=== PATIENT | male | born 1995 | race Caucasian/White ===

== ENCOUNTER 2022-12-30 09:00 | Inpatient (IN) | payer OTHER, SELFPAY ==
[2022-12-30] VITALS (9 sets, daily range): BP systolic 120–141; BP diastolic 70–100; PULSE 98–128; RESP 13–26; TEMP 36.6–37.4; O2SAT 96–98; BMI 23.0; BMI 20.8
--- NOTE | ~2022-12-30 | CT_ITS ---
EXAMINATION: CT HEAD WITHOUT CONTRAST CLINICAL INFORMATION: Altered mental status COMPARISON: None available. TECHNIQUE: Contiguous axial imaging was performed from the skull base to vertex without intravenous administration of contrast. Coronal and sagittal reformatted images were obtained. This CT examination was performed using dose optimization techniques as appropriate, variously including the following: *Automated exposure control *Adjustment of mA and/or kV according to patient size (this includes techniques or standardized protocols for targeted exams where dose is matched to indication/reason for exam; i.e. extremities or head) *Use of iterative reconstruction technique DLP: 679 mGy-cm FINDINGS: The cortical sulci are normal. The lateral ventricles are symmetrical. The third and fourth ventricles are in their normal midline position. The basilar and prepontine cisterns are unremarkable. There is no acute intra or extracerebral abnormality. There is no mass effect or midline shift. Sections through the bony calvarium are unremarkable. The paranasal sinuses show moderate mucosal thickening in the left sphenoid sinus. The bony orbits and orbital contents are unremarkable. CT/CT head/brain wo IV con IMPRESSION: No acute intracranial pathology.
--- NOTE | 2022-12-30 09:08 | ED.GENADULT ---
HPI - General Adult General Chief complaint: ETOH/Substance Use Stated complaint: Heroin withdrawal, pain all over, AMS per EMS Time Seen by Provider: 12/30/22 13:35 Source: EMS Mode of arrival: EMS Limitations: altered mental status and other (patient w/ AMS ) History of Present Illness HPI narrative: Patient is a 27 year old male history hepatitis-C, IV drug use who presents by EMS for altered mental status for suspected heroin withdrawal. Patient is alert but not oriented and is not able to give an adequate history. EMS states patient has been off methadone for two days and may have had a couple beers early this morning as per the roommate at the scene. Patient unable to provide ROS or HPI. Related Data Allergies Allergy/AdvReac Type Severity Reaction Status Date / Time No Known Allergies Allergy Unverified 01/30/20 19:30 [No Known Allergies*] Review of Systems Review of Systems: Yes Unobtainable due to mental status PMFSH Past Medical History Attestation statement: The following information was validated with the patient. Source: old records reviewed and nursing notes reviewed Social History Social History Alcohol intake: current Use of substances other than those prescribed or required for medical reasons: Yes Substance Use Type: Heroin Advance Directives: No Physical Exam ED Vital Signs: Vital Signs - 24 hr 12/30/22 09:02 12/30/22 10:19 12/30/22 12:02 Temperature 98.2 F Pulse Rate 108 H 118 H 110 H Respiratory Rate 18 19 26 H Blood Pressure 141/99 H 122/78 134/90 H Pulse Oximetry 97 97 97 Oxygen Delivery Method Room Air Room Air 12/30/22 14:28 12/30/22 16:37 Temperature 98.2 F Pulse Rate 115 H 124 H Respiratory Rate 20 22 H Blood Pressure 122/86 122/84 Pulse Oximetry 98 Oxygen Delivery Method Room Air BMI result Body Mass Index 23.0 vss Appearance: Awake, disoriented, not alert to person, place, time or situation. Patient with involuntary movements, hallucinating. Head: Normocephalic, atraumatic, no step-offs or deformities Eyes: Pupils equal, round and reactive to light.? Neck: Normal inspection.? Neck supple.? CVS: Normal heart rate and rhythm.? Pulses normal.? Respiratory: No respiratory distress.? Breath sounds normal.? Abdomen: Soft and nontender.? Skin: Skin warm and dry.? Normal skin color.? Normal skin turgor.? Extremities: No lower extremity edema.? No calf ttp. 5/5 strength to bilateral upper and lower extremities Neuro: Awake, disoriented, not alert to person, place, time or situation. Patient with involuntary movements, hallucinating. To obtain an accurate neuro exam as patient is not following commands Course Reevaluation(s) Reevaluation #1: CBC with no acute findings. Chemistry with no acute findings requiring intervention. Patient is noted to have negative salicylates negative acetaminophen. Ethanol level 320. I did have a long conversation with mom who states patient last drink a few hours ago, patient drinks 2-3 L of vodka a day. Does have a history of delirium tremens, alcohol withdrawal. She tells me this is the worst she has seen him. Also tells me that patient was seen at [facility] yesterday. However he decided to leave against medical advice. He was in at [place] due to a alcohol withdrawal seizure. She tells me he is completely altered. Patient was given Ativan, Haldol IM, he was agreeable to this, he was very anxious, mom at the bedside when he agreed to IM medications, we had a difficult time obtaining IV access this is why M was given. Not a behavioral restraint. Has not yet given us a urine. Time: 10:21 Reevaluation #2: Patient is still tachycardic, blood pressure slightly high, tachypneic. I am concerned for delirium tremens, patient is still altered. Time: 13:14 Reevaluation #3: Patient to be admitted to the hospital to hospitalist team. Prior to patient being admitted to the hospital, ICU did evaluate patient states likely no need for ICU bed. Time: 16:58 Medications Administered Discontinued Medications Generic Name Dose Route Start Last Admin Trade Name Freq PRN Reason Stop Dose Admin Haloperidol Lactate 5 mg 12/30/22 10:21 12/30/22 09:20 Haloperidol Lactate 5 Mg/Ml Vial IM 12/30/22 10:22 5 mg ONCE ONE Administration Sodium Chloride 1,000 mls @ 999 mls/hr 12/30/22 13:30 12/30/22 16:22 Ns IV 12/30/22 14:30 Infused .Q1H1M STONE Infusion Sodium Chloride 1,000 mls @ 999 mls/hr 12/30/22 13:30 12/30/22 16:22 Ns IV 12/30/22 14:30 Infused .Q1H1M STONE Infusion Lorazepam 2 mg 12/30/22 09:15 12/30/22 10:44 Lorazepam 2 Mg/Ml Vial IVPUSH 12/30/22 09:16 Not Given ONCE ONE Lorazepam 2 mg 12/30/22 10:22 12/30/22 09:20 Lorazepam 2 Mg/Ml Vial IM 12/30/22 10:23 2 mg STAT STA Administration Phenobarbital Sodium 410.8 mg 12/30/22 10:00 12/30/22 09:47 Phenobarbital Sodium 130 Mg/Ml Im Once IM 12/30/22 10:01 410.8 mg ONCE ONE Administration Protocol Phenobarbital Sodium 308.1 mg 12/30/22 13:00 12/30/22 14:16 Phenobarbital Sodium 130 Mg/Ml Vial Im Q3hx2 IM 12/30/22 16:01 308.1 mg Q3H STONE Administration Protocol Medical Decision Making Medical Decision Making [facility] Narrative: 27-year-old male presents with altered mental status, limited history. Unable to answer questions. No reported trauma. EMS states patient has history of IV drug abuse per room a and was probably drinking earlier this morning. Physical exam patient altered. Unable to answer questions. Tachycardic. Tremulous. Diaphoretic. Concerns for polysubstance abuse versus acute alcohol withdrawal versus delirium tremens as patient is altered. Unlikely traumatic injury of head, stroke, posterior stroke, encephalitis, meningitis. Will rule out electrolyte disturbances Plan at this time labs, imaging. Differential Diagnosis Differential Diagnoses: The differential diagnosis associated with the presentation includes Concerns for polysubstance abuse versus acute alcohol withdrawal versus delirium tremens as patient is altered. Unlikely traumatic injury of head, stroke, posterior stroke, encephalitis, meningitis. Will rule out electrolyte disturbances Admission/Observation Consideration of admission/observation: Escalation of care including admission/observation considered Possible ICU admission Consult Healthcare Provider Management of the patient was discussed with: Sleep Technician Lab Data [facility] Lab Attestation statement: I reviewed the patient's lab results. 12/30/22 09:31 12/30/22 09:31 Labs: Lab Results 08/18/23 08/18/23 08/18/23 Range/Units 09:31 09:31 09:31 WBC 7.1 (4.8-10.8) X10*3/uL RBC 5.42 (4.60-5.80) X10*6/uL Hgb 15.5 (14.0-18.0) g/dl Hct 43.5 (42.0-52.0) % MCV 80.3 (80.0-98.0) fL MCH 28.6 (27.0-33.0) pg MCHC 35.6 (31.0-36.0) g/dl RDW 12.8 (11.0-16.0) % Plt Count 275 (160-400) X10*3/uL MPV 8.8 L (9.4-12.4) fL Immature Gran % (Auto) 0.1 (0.0-0.4) % Neut % (Auto) 51.8 (45-73) % Lymph % (Auto) 44.0 H (20-40) % Barren % (Auto) 3.7 (2-11) % Eos % (Auto) 0.1 (0-4) % Baso % (Auto) 0.3 (0-2) % Lymph # (Auto) 3.1 (1.2-4.9) X10*3/uL Barren # (Auto) 0.3 (0.1-1.2) X10*3/uL Eos # (Auto) 0.0 (0.0-0.4) X10*3/uL Baso # (Auto) 0.0 (0.0-0.2) X10*3/uL Abs Immat Gran (auto) 0.01 (0.00-0.03) X10*3/uL Absolute Neuts (auto) 3.7 (2.0-8.3) x10*3/uL Absolute Nucleated RBC 0.000 (0.0-0.012) X10*3/uL Nucleated RBC % (auto) 0.0 (0.0-0.2) /100WBC Sodium 144 (135-145) mmol/L Potassium 3.7 (3.3-5.1) mmol/L Chloride 110 H (96-108) mmol/L Carbon Dioxide 20 L (22-29) mmol/L Anion Gap 18 (12-20) BUN 7 L (9-16) mg/dL Creatinine 0.74 (0.5-1.4) mg/dL Estim Creat Clear Calc 145.0 Estimated GFR > 60 Random Glucose 117 H (60-115) mg/dL Calcium 9.4 (8.4-10.2) mg/dL Magnesium 2.3 (1.6-2.6) mg/dL Total Bilirubin 0.4 (0.0-1.0) mg/dL AST 38 H (5-37) U/L ALT 28 (0-40) U/L Alkaline Phosphatase 79 (39-117) U/L Total Creatine Kinase 100 (38-174) U/L Total Protein 8.6 H (6.5-8.0) g/dL Albumin 4.7 (3.5-5.0) g/dL Urine Color Urine Appearance Urine pH (5.0-9.0) Ur Specific [place] (1.005-1.025) Urine Protein (Neg-Trace) mg/dL Urine Glucose (UA) (Negative) mg/dL Urine Ketones (Negative) mg/dL Urine Blood (Negative) Urine Nitrite (Negative) Ur Leukocyte Esterase (Negative) Salicylates < 5.0 L (15-30) mg/dL Urine Opiates Screen (Not Detect) Urine Fentanyl Screen (Not Detect) Acetaminophen < 17 (<30) mcg/mL Ur Barbiturates Screen (Not Detect) Ur Phencyclidine Scrn (Not Detect) Ur Amphetamines Screen (Not Detect) U Benzodiazepines Scrn (Not Detect) Urine Cocaine Screen (Not Detect) U Marijuana (THC) Screen (Not Detect) Ethyl Alcohol 320 H* mg/dL COVID-19 (ENRIQUE) (Negative) COVID-19 Clin Com 12/30/22 12/30/22 12/30/22 Range/Units 09:33 15:37 15:37 WBC 6.0 (4.8-10.8) X10*3/uL RBC 5.08 (4.60-5.80) X10*6/uL Hgb 14.4 (14.0-18.0) g/dl Hct 42.2 (42.0-52.0) % MCV 83.1 (80.0-98.0) fL MCH 28.3 (27.0-33.0) pg MCHC 34.1 (31.0-36.0) g/dl RDW 12.7 (11.0-16.0) % Plt Count 222 (160-400) X10*3/uL MPV 8.9 L (9.4-12.4) fL Immature Gran % (Auto) 0.3 (0.0-0.4) % Neut % (Auto) 66.7 (45-73) % Lymph % (Auto) 27.0 (20-40) % Barren % (Auto) 5.7 (2-11) % Eos % (Auto) 0.0 (0-4) % Baso % (Auto) 0.3 (0-2) % Lymph # (Auto) 1.6 (1.2-4.9) X10*3/uL Barren # (Auto) 0.3 (0.1-1.2) X10*3/uL Eos # (Auto) 0.0 (0.0-0.4) X10*3/uL Baso # (Auto) 0.0 (0.0-0.2) X10*3/uL Abs Immat Gran (auto) 0.02 (0.00-0.03) X10*3/uL Absolute Neuts (auto) 4.0 (2.0-8.3) x10*3/uL Absolute Nucleated RBC 0.000 (0.0-0.012) X10*3/uL Nucleated RBC % (auto) 0.0 (0.0-0.2) /100WBC Sodium 145 (135-145) mmol/L Potassium 3.3 (3.3-5.1) mmol/L Chloride 111 H (96-108) mmol/L Carbon Dioxide 22 (22-29) mmol/L Anion Gap 15 (12-20) BUN 7 L (9-16) mg/dL Creatinine 0.73 (0.5-1.4) mg/dL Estim Creat Clear Calc 147.0 Estimated GFR > 60 Random Glucose 145 H (60-115) mg/dL Calcium 9.0 (8.4-10.2) mg/dL Magnesium (1.6-2.6) mg/dL Total Bilirubin 0.3 (0.0-1.0) mg/dL AST 41 H (5-37) U/L ALT 26 (0-40) U/L Alkaline Phosphatase 68 (39-117) U/L Total Creatine Kinase (38-174) U/L Total Protein 7.5 (6.5-8.0) g/dL Albumin 4.1 (3.5-5.0) g/dL Urine Color Urine Appearance Urine pH (5.0-9.0) Ur Specific [place] (1.005-1.025) Urine Protein (Neg-Trace) mg/dL Urine Glucose (UA) (Negative) mg/dL Urine Ketones (Negative) mg/dL Urine Blood (Negative) Urine Nitrite (Negative) Ur Leukocyte Esterase (Negative) Salicylates (15-30) mg/dL Urine Opiates Screen (Not Detect) Urine Fentanyl Screen (Not Detect) Acetaminophen (<30) mcg/mL Ur Barbiturates Screen (Not Detect) Ur Phencyclidine Scrn (Not Detect) Ur Amphetamines Screen (Not Detect) U Benzodiazepines Scrn (Not Detect) Urine Cocaine Screen (Not Detect) U Marijuana (THC) Screen (Not Detect) Ethyl Alcohol mg/dL COVID-19 (ENRIQUE) Negative (Negative) COVID-19 Clin Com See Note 12/30/22 12/30/22 Range/Units 16:09 16:09 WBC (4.8-10.8) X10*3/uL RBC (4.60-5.80) X10*6/uL Hgb (14.0-18.0) g/dl Hct (42.0-52.0) % MCV (80.0-98.0) fL MCH (27.0-33.0) pg MCHC (31.0-36.0) g/dl RDW (11.0-16.0) % Plt Count (160-400) X10*3/uL MPV (9.4-12.4) fL Immature Gran % (Auto) (0.0-0.4) % Neut % (Auto) (45-73) % Lymph % (Auto) (20-40) % Barren % (Auto) (2-11) % Eos % (Auto) (0-4) % Baso % (Auto) (0-2) % Lymph # (Auto) (1.2-4.9) X10*3/uL Barren # (Auto) (0.1-1.2) X10*3/uL Eos # (Auto) (0.0-0.4) X10*3/uL Baso # (Auto) (0.0-0.2) X10*3/uL Abs Immat Gran (auto) (0.00-0.03) X10*3/uL Absolute Neuts (auto) (2.0-8.3) x10*3/uL Absolute Nucleated RBC (0.0-0.012) X10*3/uL Nucleated RBC % (auto) (0.0-0.2) /100WBC Sodium (135-145) mmol/L Potassium (3.3-5.1) mmol/L Chloride (96-108) mmol/L Carbon Dioxide (22-29) mmol/L Anion Gap (12-20) BUN (9-16) mg/dL Creatinine (0.5-1.4) mg/dL Estim Creat Clear Calc Estimated GFR Random Glucose (60-115) mg/dL Calcium (8.4-10.2) mg/dL Magnesium (1.6-2.6) mg/dL Total Bilirubin (0.0-1.0) mg/dL AST (5-37) U/L ALT (0-40) U/L Alkaline Phosphatase (39-117) U/L Total Creatine Kinase (38-174) U/L Total Protein (6.5-8.0) g/dL Albumin (3.5-5.0) g/dL Urine Color Yellow Urine Appearance Clear Urine pH 6.0 (5.0-9.0) Ur Specific [place] 1.015 (1.005-1.025) Urine Protein Negative (Neg-Trace) mg/dL Urine Glucose (UA) Negative (Negative) mg/dL Urine Ketones 15 (Negative) mg/dL Urine Blood Negative (Negative) Urine Nitrite Negative (Negative) Ur Leukocyte Esterase Negative (Negative) Salicylates (15-30) mg/dL Urine Opiates Screen Not Detected (Not Detect) Urine Fentanyl Screen POSITIVE H (Not Detect) Acetaminophen (<30) mcg/mL Ur Barbiturates Screen POSITIVE H (Not Detect) Ur Phencyclidine Scrn Not Detected (Not Detect) Ur Amphetamines Screen Not Detected (Not Detect) U Benzodiazepines Scrn POSITIVE H (Not Detect) Urine Cocaine Screen POSITIVE H (Not Detect) U Marijuana (THC) Screen Not Detected (Not Detect) Ethyl Alcohol mg/dL COVID-19 (ENRIQUE) (Negative) COVID-19 Clin Com Independent Interpretation I performed an independent interpretation of an: CT Scan (UnremarkableCT/CT head/brain wo IV con IMPRESSION: No acute intracranial pathology. ) Radiology Impression Discussion of test interpretation with radiology: I have reviewed the radiologist's reading. Core Measures AMI core measures followed: Yes Measure exclusions: not indicated Critical Care Time Critical Care Time Critical Care Time: Yes Total Critical Care Time: 35 Attestation: I attest to this time spent taking care of the patient, obtaining history, physical, reviewing labs, imaging, speaking to my attending Discharge Plan Discharge Clinical Impression: Alcohol withdrawal syndrome, Polysubstance abuse Patient Disposition: Admitted As Inpatient
--- NOTE | 2022-12-30 09:16 | PC.NURSE ---
per provider radha, ativan and haldol needed to facilitate care for the patient. Pt non-combative, nor exhibiting aggressive behaviors but is confused and paniced and unable to cooperate with necessary care.
[2022-12-30] MEDS: LORazepam 2 MG/ML VIAL IM (09:20)
[2022-12-30] MEDS: Haloperidol Lactate 5 MG/ML VIAL IM (09:20)
[2022-12-30 09:35] LABS: MANUAL DIFF FLAG NO
[2022-12-30 09:37] LABS: Basophils Percent Auto 0.3 % (0-2); Eosinophils Percent Auto 0.1 % (0-4); Hematocrit 43.5 % (42.0-52.0); Hemoglobin 15.5 g/dl (14.0-18.0); Imm Gran Abs Auto 0.01 X10*3/uL (0.00-0.03); Imm Gran Pct Auto 0.1 % (0.0-0.4); Lymphocytes Absolute Auto 3.1 X10*3/uL (1.2-4.9); Mean Corpuscular HGB Conc 35.6 g/dl (31.0-36.0); Mean Corpuscular Hemoglobin 28.6 pg (27.0-33.0); Mean Corpuscular Volume 80.3 fL (80.0-98.0); Mean Platelet Volume 8.8 fL (9.4-12.4); Monocytes Absolute Auto 0.3 X10*3/uL (0.1-1.2); Monocytes Percent Auto 3.7 % (2-11); Neutrophils Absolute Auto 3.7 x10*3/uL (2.0-8.3); Neutrophils Percent Auto 51.8 % (45-73); Platelet Count 275 X10*3/uL (160-400); Red Blood Count 5.42 X10*6/uL (4.60-5.80); Red Cell Distribution Width 12.8 % (11.0-16.0); White Blood Count 7.1 X10*3/uL (4.8-10.8)
--- OUTSIDE RECORDS SUMMARY | 2022-12-30 09:41 | XMS_ITS | Continuity of Care Document ---
Author Name Unknown Organization [facility] Address [address], [address], [address] [place] [id number]- Care Team Providers Care District Captain Name Role Phone Rubi Garland MD Primary Care Phys ician [place] [facility] [place] [facility] [address], [address], [address] [place] [id number]- Allergies, Adverse Reactions, Alerts No Known Allergies Medications gabapentin (OP) = 300 mg, By Mouth, 3 times a day, 0 Refills, Maintenance, 2 Start Date: 07/24/22 Status: Ordered Methadone 0 Refills, Maintenance, 08/25/21 16:31:00 EDT, Partial fill upon patient request if the prescription is for a schedule II opioid drug. Start Date: 08/25/21 Status: Ordered omeprazole 20 mg oral delayed release tablet 1 tablet = 20 mg, By Mouth, Daily, 0 Refills, Maintenance, 08/25/21 16:30:00 EDT, Partial fill uponpatient request if the prescription is for a schedule II opioid drug. Start Date: 08/25/21 Status: Ordered Social History Social History Type Response Smoking Status 5-9 cigarettes (betw een 1/4 to 1/2 pack)/day in last 30 days;10 or more cigarettes (1/2 pack or more)/day in last 30 days entered on: 07/24/22 Sex Patient Care team information Care Team Personnel Name: Rubi Garland MD Position: Reference Physician Member Role: PCP Address: Address: [address] [facility] [place] [address]- Care Team Related Persons Name: JOHN HERNANDEZ Address: home [address] [place] [address]
--- OUTSIDE RECORDS SUMMARY | 2022-12-30 09:41 | XMS_ITS | Continuity of Care Document ---
Author Name Unknown Organization [facility] ter Address [address] [place] [id number]- Care Team Providers Care Nursing Care Attendant Name Role Phone Molly Landon MD, Rubi Primary Care Phys ician [place] [facility] [place] - 05/08/[address] [address]- Encounter Diagnosis Alcohol intoxication(Final) - 05/08/22 Discharge Disposition: A-D/C Home Attending Physician: Elijah Anthony MD Admitting Physician: Elijah Anthony MD Referring Physician: Not on Staff, Referring MD Allergies, Adverse Reactions, Alerts No Known Allergies Medications Methadone 0 Refills, Maintenance, 08/25/21 16:31:00 EDT, [...] opioid drug. Start Date: 08/25/21 Status: Ordered Vital Signs Most recent to oldest [Reference Range]: 1 2 3 Oxygen Saturation [94-100 %] 100 % (05/08/22 8:18 AM) 100 % (05/08/22 6:18 AM) 100 % (05/08/22 4:01 AM) Pulse Rate [55-90 bpm] 118 bpm *H* (05/08/22 8:18 AM) 79 bpm (05/08/22 6:18 AM) 96 bpm *H* (05/08/22 4:01 AM) Blood Pressure [90-138/55-84 mm Hg] 133/78mm Hg (05/08/22 8:18 AM) 131/76mm Hg (05/08/22 6:18 AM) 97/69mm Hg (05/08/22 4:01 AM) Respiratory Rate [16-30 br/min] 20 br/min (05/08/22 8:18 AM) 18 br/min (05/08/22 6:18 AM) 12 br/min *L* (05/08/22 4:01 AM) Temperature [96.8-100.4 DegF] 97.3 DegF (05/08/22 6:18 AM) 99.2 DegF (05/08/22 4:01 AM) Liters per Minute 2 L/min (05/08/22 4:01 AM) Mode of Delivery (Oxygen) Room air (05/08/22 8:18 AM) Room air (05/08/22 6:18 AM) Nasal cannula (05/08/22 4:01 AM) Blood pressure sites Arm, right (05/08/22 6:18 AM) Temperature Route Oral (05/08/22 6:18 AM) Oral (05/08/22 4:01 AM) Social History Social History Type Response Smoking Status 10 or more cigarette s (1/2 pack or more)/day in last 30 days entered on: 08/25/21 Sex Patient Care team information Care Team Personnel Name: Rubi Garland MD Position: Reference Physician Member Role: PCP Address: Address: [address] [place] [id number] Name: Elijah Anthony MD Position: [facility] ED Medicine MD Member Role: Admitting Physician Address: Address: [address] [place] [address] [place] [address]- Name: Shruti Andrew DO Position: [facility] Resident Member Role: ED Resident Address: Address: [address] [place] [id number]- Name: Cas Mcmanus RN Position: [facility] ED RN W/OE and Tasks Member Role: Patient Care Provider Name: Clemencia Land RN Position: [facility] ED RN W/OE and Tasks Member Role: Patient Care Provider Care Team Related Persons Name: DAVID JOHN Address: [address] [address]
--- OUTSIDE RECORDS SUMMARY | 2022-12-30 09:41 | XMS_ITS | Continuity of Care Document ---
Author Name Unknown Organization [facility] ter Address [address] [place] [address]- Care Team Providers Care Stockfeed Miller Name Role Phone Molly Landon MD, Rubi Primary Care Phys ician Encounter [facility] [place] Date(s): 06/09/21 - 06/09/[address] [address]- Encounter Diagnosis Chest pain(Final) - 06/09/21 Discharge Disposition: A-D/C AMA Attending Physician: Simón Shoemaker MD Admitting Physician: Simón Shoemaker MD Referring Physician: Not on Staff, Referring MD Allergies, Adverse Reactions, Alerts No Known Allergies Results Radiology Reports * Exam Date Time Procedure Performing Provider Status 06/09/21 9:02 AM Chest 2 Views Frontal and Lat Armstrong , Reginald; Auth (Verified) Notes: (Chest 2 Views Frontal and Lat) Reason For Exam: Pleuritic Pain RESULT: Chest 2 Views Frontal and Lat Chest 2 Views Frontal and Lat Hx of Present Illness: pt presents to ed triage c o left-sided sharp chest pain, SOB, right-sided upper extremity numbness and urinary incontinence, symptoms began yesterday. pt coming [facility]Reason: Pleuritic Pain; Clinical Question(s): Pneumonia COMPARISON: None. FINDINGS: No acute cardiopulmonary process 0.6 cm nodule projecting over the right first anterior rib IMPRESSION: No acute abnormality. 0.6 cm nodule projecting over the right first anterior rib. Nonemergent chest CT is recommended foradditional assessment A Yellow message has been communicated via the [employer] system on 06/09/2021 9:07 AM, Message ID [id number]. WSN: [id number] Ordering Physician: Edy Rick Dictated By: Edy Solorzano MD Dictated Date/Time: 06/09/21 9:07 am Reviewed By: Edy Solorzano MD Signed By: Edy Solorzano MD Signed Date/Time: 06/09/21 9:07 am Transcribed By: INOCENCIO Transcribed Date/Time: 06/09/21 9:03 am Vital Signs Most recent to oldest [Reference Range]: 1 2 3 Oxygen Saturation [94-100 %] 97 % (06/09/21 8:07 AM) 97 % (06/09/21 7:36 AM) 100 % (06/09/21 7:20 AM) Pulse Rate [55-90 bpm] 88 bpm (06/09/21 8:07 AM) 86 bpm (06/09/21 7:36 AM) 118 bpm *H* (06/09/21 7:20 AM) Blood Pressure [90-138/55-84 mm Hg] 158/63mm Hg *H* (06/09/21 8:07 AM) 116/69mm Hg (06/09/21 7:36 AM) Respiratory Rate [16-30 br/min] 18 br/min (06/09/21 8:07 AM) 18 br/min (06/09/21 7:36 AM) Temperature [96.8-100.4 DegF] 99.4 DegF (06/09/21 8:07 AM) 98.6 DegF (06/09/21 7:36 AM) Mode of Delivery (Oxygen) Room air (06/09/21 8:07 AM) Room air (06/09/21 7:36 AM) Room air (06/09/21 7:20 AM) Blood pressure sites Arm, left (06/09/21 8:07 AM) Arm, right (06/09/21 7:36 AM) Temperature Route Oral (06/09/21 8:07 AM) Oral (06/09/21 7:36 AM)
[2022-12-30] MEDS: PHENobarbitaL sodium 130 MG/ML IM ONCE 410.8 MG IM (09:47)
[2022-12-30 09:50] LABS: COVID-19 Test Negative (Negative); IDNOW Serial# 08D9AD1C
[2022-12-30 09:51] LABS: Alanine Aminotransferase 28 U/L (0-40); Albumin Level 4.7 g/dL (3.5-5.0); Alkaline Phosphatase 79 U/L (39-117); Anion Gap 18 (12-20); Aspartate Amino Transferase 38 U/L (5-37); Bilirubin Total 0.4 mg/dL (0.0-1.0); Blood Urea Nitrogen 7 mg/dL (9-16); Calcium 9.4 mg/dL (8.4-10.2); Carbon Dioxide 20 mmol/L (22-29); Chloride 110 mmol/L (96-108); Estimated Glomerular Filt Rate > 60; Ethanol 320 mg/dL; Glucose Random 117 mg/dL (60-115); Magnesium 2.3 mg/dL (1.6-2.6); Potassium 3.7 mmol/L (3.3-5.1); Sodium 144 mmol/L (135-145); Total Protein 8.6 g/dL (6.5-8.0)
[2022-12-30 09:52] LABS: Acetaminophen LAB < 17 mcg/mL (<30); Salicylate < 5.0 mg/dL (15-30)
--- NOTE | 2022-12-30 09:58 | PC.NURSE ---
pt comes in via EMS, agitated, confused, disoriented. Pt repeatedly asked where he was and was unable to keep still. IV and labs obtained, 22 in left wrist. Per pt mother, pt stopped drinking and taking haldol 4 days ago and was at [facility] yesterday with similar symptoms. per pt mother he had a seizure yesterday at [facility] - seizure precautions in place. ativan and haldol given per override verbal order. Phenobarb protocol also started per JUL. Pt sleeping at this time. will cont to johnnie
--- NOTE | 2022-12-30 10:33 | ECG_ITS ---
Test Reason : ETOH Blood Pressure : / mmHG Vent. Rate : 134 BPM Atrial Rate : 134 BPM P-R Int : 130 ms QRS Dur : 076 ms QT Int : 316 ms P-R-T Axes : 053 -18 059 degrees QTc Int : 471 ms Sinus tachycardia Nonspecific T wave abnormality Abnormal ECG When compared with ECG of 09-AUG-2018 14:21, Premature atrial complexes are no longer Present Vent. rate has increased BY 79 BPM Nonspecific T wave abnormality now evident in Lateral leads Referred By: Kellie Bower Electronically Signed By:PEREZ SILVA
--- NOTE | 2022-12-30 11:04 | MHC.RECOVSUP ---
Attempted to meet with pt in ED21, however pt was unable to answer questions at this time. Will check back at another time.
--- NOTE | 2022-12-30 12:56 | PC.NURSE ---
pt sleeping, no distress noted,will ctm
--- NOTE | 2022-12-30 13:19 | PC.NURSE ---
called [facility] for phenobarb, waiting for it to be brought up
[2022-12-30] MEDS: PHENobarbitaL sodium 130 MG/ML VIAL IM Q3Hx2 308.1 MG IM ×2 (14:16→17:11)
[2022-12-30] MEDS: 0.9 % Sodium Chloride 1,000 ML 999 ML IV ×2 (14:27→14:28)
--- NOTE | 2022-12-30 14:28 | PC.NURSE ---
fluids hung per order. pt sleeping.
[2022-12-30 15:42] LABS: MANUAL DIFF FLAG NO
[2022-12-30 15:47] LABS: Basophils Percent Auto 0.3 % (0-2); Hematocrit 42.2 % (42.0-52.0); Hemoglobin 14.4 g/dl (14.0-18.0); Imm Gran Abs Auto 0.02 X10*3/uL (0.00-0.03); Imm Gran Pct Auto 0.3 % (0.0-0.4); Lymphocytes Absolute Auto 1.6 X10*3/uL (1.2-4.9); Mean Corpuscular HGB Conc 34.1 g/dl (31.0-36.0); Mean Corpuscular Hemoglobin 28.3 pg (27.0-33.0); Mean Corpuscular Volume 83.1 fL (80.0-98.0); Mean Platelet Volume 8.9 fL (9.4-12.4); Monocytes Absolute Auto 0.3 X10*3/uL (0.1-1.2); Monocytes Percent Auto 5.7 % (2-11); Neutrophils Percent Auto 66.7 % (45-73); Platelet Count 222 X10*3/uL (160-400); Red Blood Count 5.08 X10*6/uL (4.60-5.80); Red Cell Distribution Width 12.7 % (11.0-16.0)
--- NOTE | 2022-12-30 15:56 | PC.NURSE ---
pt urinated 600ml output. Previous bladder scan showed 500 range. pt sleeping now
[2022-12-30 16:03] LABS: Alanine Aminotransferase 26 U/L (0-40); Albumin Level 4.1 g/dL (3.5-5.0); Alkaline Phosphatase 68 U/L (39-117); Anion Gap 15 (12-20); Aspartate Amino Transferase 41 U/L (5-37); Bilirubin Total 0.3 mg/dL (0.0-1.0); Blood Urea Nitrogen 7 mg/dL (9-16); Carbon Dioxide 22 mmol/L (22-29); Chloride 111 mmol/L (96-108); Estimated Glomerular Filt Rate > 60; Glucose Random 145 mg/dL (60-115); Potassium 3.3 mmol/L (3.3-5.1); Sodium 145 mmol/L (135-145); Total Protein 7.5 g/dL (6.5-8.0)
[2022-12-30 16:14] LABS: Appearance Urine Clear; Color Urine Yellow; Glucose Urine UA Negative (Negative); Leukocyte Esterase Urine Negative (Negative); Nitrite Urine Negative (Negative); Specific Gravity - Urine 1.015 (1.005-1.025); Urine Blood Negative (Negative); Urine Ketones 15 mg/dL (Negative); Urine Protein Negative (Neg-Trace)
[2022-12-30 16:23] LABS: Amphetamine Screen Urine Not Detected (Not Detect); Barbiturates, Urine POSITIVE (Not Detect); Benzodiazepines Screen Urine POSITIVE (Not Detect); Cannabinoid Screen Urine Not Detected (Not Detect); Cocaine Screen Urine POSITIVE (Not Detect); Opiate Screen Urine Not Detected (Not Detect); Phencyclidine Screen Urine Not Detected (Not Detect)
--- NOTE | 2022-12-30 17:21 | PM.IMHP ---
History of Present Illness Date of Service: 12/30/22 Chief Complaint: Altered mental status 27-year-old gentleman with past medical history of hepatitis-C, IV drug use, who presents by EMS for altered mental status, patient was recently evaluated at [facility] yesterday for alcohol withdrawal seizure patient left ED, against medical advise, patient lives at home with a roommate, after returning back home patient had few more drinks this a.m. but did not use IV drugs, he was noted to be somnolent, confused therefore mother requested roommate to transfer him to [place] ED, patient takes methadone at home that he has not received in last few days , on arrival to ED patient was confused, unable to provide meaningful history, he was noted to be tachycardic, tachypneic completed pressure was high normal, he was treated in ED with IM Haldol, Ativan as well as phenobarb his drug toxicology was positive for fentanyl, cocaine, barbiturate, benzodiazepine his alcohol level was 320, CT head showed no acute abnormality LFTs and renal function are unremarkable, is stable hematocrit, platelets 275, salicylate level, Tylenol level within normal range, COVID-19 negative magnesium 2.3, EKG showed sinus tachycardia, patient later became more awake, alert is aware that he is at [facility], admits to drinking 1.5 L of vodka daily, uses IV cocaine on a regular basis, mostly inject in neck, quit smoking and now vaping, he is unemployed. Review of Systems Review of Systems: General no headache, no dizziness, no fever chills. CVS no chest pain, no palpitation. Respiratory no cough, no sob Gastrointestinal no nausea no vomiting, no abdominal pain Musculoskeletal c/o b/l leg pain no urinary urgency, no frequency. PMFSH Pertinent family history: Mother is alive held a no chronic medical issues patient not aware of father's medical history. Social History Household Members: Unknown / Unable to assess Housing: Unknown / Unable to assess Do you presently have visiting nurse or other home services: No Alcohol intake: current Patient Tobacco Use Status: Tobacco use Unknown Use of substances other than those prescribed or required for medical reasons: Yes Substance Use Type: Crack/Cocaine and Heroin Substance Use Frequency: Daily Last Used Substance: Unknown Currently Displaying Signs/Symptoms of Drug Intoxication Withdrawal: Yes Any prior treatment program specific to substance use: Yes Have you been hit, kicked, punched, or otherwise hurt by someone within the past year? If so, by whom?: No Do you feel safe in your current relationship?: Yes Is there a partner from a previous relationship who is making you feel unsafe now?: No Are you made to feel afraid or neglected: No Advance Directives: No Advance Directives Information Provided: No (Declined) Do you have thoughts of harming others: None Do you have a plan to hurt others: No Plan Recently lost weight without trying: Unsure How much weight loss: Unsure Eating poorly because of decreased appetite: No Nutrition screen score: 4 Nutrition Risks: No Nutritional Risk Poor oral hygiene: No service: No Meds Allergies Allergy/AdvReac Type Severity Reaction Status Date / Time No Known Allergies Allergy Unverified 01/30/20 19:30 [No Known Allergies*] Active Medications: Current Medications Acetaminophen (Acetaminophen 325 Mg Tablet) 650 mg PO Q6H PRN PRN Reason: Pain, Mild (Pain Scale 1-3) Ondansetron HCl (Ondansetron Hcl 4 Mg/2 Ml Vial) 4 mg IVPUSH Q8H PRN PRN Reason: Nausea and Vomiting Pharmacy Consult (Consult Rx Etoh Phenob Im/Po) 1 each MISCELLANE ONCE PRN; Protocol PRN Reason: Consult order Pharmacy Consult (Consult Rx Perform Med Rec) 1 each MISCELLANE ONCE PRN PRN Reason: Consult order Pharmacy Consult (Consult Rx Perform Med Rec) 1 each MISCELLANE ONCE PRN PRN Reason: Consult order Phenobarbital (Phenobarbital 15 Mg Tablet) 45 mg PO BID [facility], [facility]1983 Stop: 01/01/23 09:01 Phenobarbital (Phenobarbital 15 Mg Tablet) 15 mg PO BID [facility], [facility]1983; Protocol Stop: 01/03/23 09:01 Phenobarbital (Phenobarbital 15 Mg Tablet) 15 mg PO DAILY [facility], [facility]1983 Stop: 01/05/23 09:01 Sodium Chloride (0.9 % Sodium Chloride Flush 3 Ml Syringe) 3 [facility] Medications Medication Instructions Recorded Confirmed Last Taken Type gabapentin 300 mg capsule 300 mg PO TID 12/30/22 12/30/22 Unknown History omeprazole 20 mg capsule,delayed 20 mg PO DAILY 12/30/22 12/30/22 Unknown History release Physical Exam Vital Signs and Narrative: Vital Signs: Last Vital Signs Temp 98.2 F 12/30/22 16:37 Pulse 124 H 12/30/22 16:37 Resp 22 H 12/30/22 16:37 BP 122/84 12/30/22 16:37 Pulse Ox 98 12/30/22 16:37 O2 Del Method Room Air 12/30/22 16:37 BMI result Body Mass Index 23.0 Const: Other: General somnolent easily arousable answer questions appropriately awake alert,in no acute distress. Neck supple no JVD. CVS regular rate rhythm, Respiratory lungs clear to auscultation, no respiratory distress, no wheeze, no rhonchi. Gastrointestinal abdomen soft, nontender, bowel sounds audible, 0 my God I am happy mass no guarding , no rigidity. Extremities no edema. Neuro moving all 4 extremity, speech clear. Skin multiple needle hamm Musculoskeletal no deformity normal knee/ankle examination Results Labs 12/30/22 15:37 12/30/22 15:37 Labs: Laboratory Results - last 24 hr 12/30/22 12/30/22 12/30/22 09:31 09:31 09:31 MCV 80.3 MCH 28.6 MCHC 35.6 RDW 12.8 Plt Count 275 MPV 8.8 L Immature Gran % (Auto) 0.1 Neut % (Auto) 51.8 Lymph % (Auto) 44.0 H [place] % (Auto) 3.7 Eos % (Auto) 0.1 Baso % (Auto) 0.3 Lymph # (Auto) 3.1 [place] # (Auto) 0.3 Eos # (Auto) 0.0 Baso # (Auto) 0.0 Abs Immat Gran (auto) 0.01 Absolute Neuts (auto) 3.7 Absolute Nucleated RBC 0.000 Nucleated RBC % (auto) 0.0 Anion Gap 18 Estim Creat Clear Calc 145.0 Estimated GFR > 60 Random Glucose 117 H Calcium 9.4 Magnesium 2.3 Total Bilirubin 0.4 AST 38 H ALT 28 Alkaline Phosphatase 79 Total Creatine Kinase 100 Total Protein 8.6 H Albumin 4.7 Urine Color Urine Appearance Urine pH Ur Specific [place] Urine Protein Urine Glucose (UA) Urine Ketones Urine Blood Urine Nitrite Ur Leukocyte Esterase Salicylates < 5.0 L Urine Opiates Screen Urine Fentanyl Screen Acetaminophen < 17 Ur Barbiturates Screen Ur Phencyclidine Scrn Ur Amphetamines Screen U Benzodiazepines Scrn Urine Cocaine Screen U Marijuana (THC) Screen Ethyl Alcohol 320 H* COVID-19 (ENRIQUE) COVID-19 Babelgum Com 12/30/22 12/30/22 12/30/22 09:33 15:37 15:37 MCV 83.1 MCH 28.3 MCHC 34.1 RDW 12.7 Plt Count 222 MPV 8.9 L Immature Gran % (Auto) 0.3 Neut % (Auto) 66.7 Lymph % (Auto) 27.0 [place] % (Auto) 5.7 Eos % (Auto) 0.0 Baso % (Auto) 0.3 Lymph # (Auto) 1.6 [place] # (Auto) 0.3 Eos # (Auto) 0.0 Baso # (Auto) 0.0 Abs Immat Gran (auto) 0.02 Absolute Neuts (auto) 4.0 Absolute Nucleated RBC 0.000 Nucleated RBC % (auto) 0.0 Anion Gap 15 Estim Creat Clear Calc 147.0 Estimated GFR > 60 Random Glucose 145 H Calcium 9.0 Magnesium Total Bilirubin 0.3 AST 41 H ALT 26 Alkaline Phosphatase 68 Total Creatine Kinase Total Protein 7.5 Albumin 4.1 Urine Color Urine Appearance Urine pH Ur Specific [place] Urine Protein Urine Glucose (UA) Urine Ketones Urine Blood Urine Nitrite Ur Leukocyte Esterase Salicylates Urine Opiates Screen Urine Fentanyl Screen Acetaminophen Ur Barbiturates Screen Ur Phencyclidine Scrn Ur Amphetamines Screen U Benzodiazepines Scrn Urine Cocaine Screen U Marijuana (THC) Screen Ethyl Alcohol COVID-19 (ENRIQUE) Negative COVID-19 Clin Com See Note 12/30/22 12/30/22 16:09 16:09 MCV MCH MCHC RDW Plt Count MPV Immature Gran % (Auto) Neut % (Auto) Lymph % (Auto) [place] % (Auto) Eos % (Auto) Baso % (Auto) Lymph # (Auto) [place] # (Auto) Eos # (Auto) Baso # (Auto) Abs Immat Gran (auto) Absolute Neuts (auto) Absolute Nucleated RBC Nucleated RBC % (auto) Anion Gap Estim Creat Clear Calc Estimated GFR Random Glucose Calcium Magnesium Total Bilirubin AST ALT Alkaline Phosphatase Total Creatine Kinase Total Protein Albumin Urine Color Yellow Urine Appearance Clear Urine pH 6.0 Ur Specific [place] 1.015 Urine Protein Negative Urine Glucose (UA) Negative Urine Ketones 15 Urine Blood Negative Urine Nitrite Negative Ur Leukocyte Esterase Negative Salicylates Urine Opiates Screen Not Detected Urine Fentanyl Screen POSITIVE H Acetaminophen Ur Barbiturates Screen POSITIVE H Ur Phencyclidine Scrn Not Detected Ur Amphetamines Screen Not Detected U Benzodiazepines Scrn POSITIVE H Urine Cocaine Screen POSITIVE H U Marijuana (THC) Screen Not Detected Ethyl Alcohol COVID-19 (ENRIQUE) COVID-19 Clin Com Imaging Radiologist's Impressions: Impressions Head CT 12/30/22 11:38 IMPRESSION: No acute intracranial pathology. Assessment and Plan (1) Alcohol withdrawal syndrome: Status: Acute (2) Polysubstance abuse: Status: Acute Plan 27-year-old male with history of hepatitis-C, IV drug use, history of opioid use on methadone, alcohol use disorder with prior history of alcohol withdrawal seizures presented to [facility] due to altered mental status and noted to have alcohol intoxication, urine Toxicology positive for cocaine, fentanyl, benzodiazepine and barbiturate, patient will be admitted to hospital for alcohol intoxication and high risk for alcohol withdrawal. Alcohol abuse and high risk for withdrawal. phenobarb protocol, thiamine, folic acid, ETOH 320 Normal magnesium level, Prilosec for GI prophylaxis, as needed hydroxyzine Sinus tach likely due to withdrawal. Tele monitoring Addiction Medicine consult Seizure precautions Polysubstance abuse actively using IV cocaine, IV heroin, and fentanyl, despite receiving methadone intermittently, last methadone use 4 days as per patient's roommate, will obtain Addiction Medicine consult. Will place on hydroxyzine, and clonidine as needed for withdrawal symptoms. Generalized pain likely due to withdrawal continue gabapentin home does, Tylenol avoid sedative medications since on phenobarb and has received multiple dosages of Ativan and Haldol in ED. Hepatitis-C need outpatient workup and treatment . DVT prophylaxis low risk will encourage early ambulation once clinically stable In my clinical judgment patient need 2 night inpatient stay due to alcohol intoxication with high risk for etoh withdrawal with prior history of alcohol withdrawal seizure. Time Spent With Patient Time: Total time managing care of this patient today ____ minutes. Quality Stroke Does the patient have a stroke diagnosis?: No VTE Prior VTE?: No VTE Risk Level:: Medical - low VTE Device Contraindication: Treatment Not Indicated VTE Drug Contraindication: Treatment Not Indicated
[2022-12-30 17:23] LABS: Ethanol 183 mg/dL
--- NOTE | 2022-12-30 18:02 | PHA.MEDREC ---
Pharmacy Consult ? Medication Reconciliation Pharmacy has completed the medication reconciliation.
--- NOTE | 2022-12-30 18:30 | MHC.EDTECH ---
Patient changed over into hospital clothing
[2022-12-30 19:50] LABS: Thyroid Stimulating Hormone 0.03 uIU/mL (0.32-4.0)
--- NOTE | 2022-12-30 20:19 | PC.NURSE ---
awaiting callback from [facility] for report
[2022-12-30] MEDS: Gabapentin 300 MG CAPSULE PO (20:45)
[2022-12-30] MEDS: PHENobarbitaL 15 MG TABLET 45 MG PO (20:45)
[2022-12-31] MEDS: Acetaminophen 325 MG TABLET 650 MG PO ×3 (02:05→14:11)
[2022-12-31] MEDS: hydrOXYzine HCL 25 MG TABLET PO ×2 (02:05→08:01)
[2022-12-31] MEDS: 0.9 % Sodium Chloride Flush 3 ML SYRINGE IVFLUSH ×4 (03:40→23:50)
[2022-12-31 04:00] VITALS: BP 135/77; PULSE 98; RESP 18; TEMP 36.6; O2SAT 96
--- NOTE | 2022-12-31 06:36 | PC.NURSE ---
PT TO ROOM 473 FROM ER AT 2200. PT IS CONFUSED, DOES NOT FOLLOW COMMANDS. LETHARGIC. UNSTEADY GAIT. PULLED OUT IV UNINTENTIONALLY DURING PERIOD OF RESTLESSNESS. TELESITTER IN USE. BED ALARM ON. SEIZURE PRECAUTIONS MAINTAINED. NO SEIZURE ACTIVITY NOTED. MONITOR SHOWS SR-ST, 90'S-LOW 100'S, NO ECTOPY. ZYPREXA ORDERED BUT NOT GIVEN BECAUSE PT FELL ASLEEP. BP IS GOOD. STANDS AT BEDSIDE TO VOID. VERY UNSTEADY. STARTING TO HAVE LOOSE STOOL. WAS INCONTINENT OF SMALL AMOUNT OF LOOSE BROWN STOOL. AMBULATED TO BATHROOM WITH 1 ASSIST AND SMALL AMT OF SAME STOOL NOTED.
[2022-12-31 07:15] VITALS: BP 135/81; PULSE 100; RESP 18; TEMP 36.9; O2SAT 97
[2022-12-31 07:27] LABS: Anion Gap 15 (12-20); Blood Urea Nitrogen 9 mg/dL (9-16); Calcium 9.6 mg/dL (8.4-10.2); Carbon Dioxide 22 mmol/L (22-29); Chloride 101 mmol/L (96-108); Creatinine Clr Calc Pharmacy 126.3; Estimated Glomerular Filt Rate > 60; Glucose Random 101 mg/dL (60-115); Sodium 135 mmol/L (135-145)
[2022-12-31] MEDS: PHENobarbitaL 15 MG TABLET 45 MG PO ×2 (08:01→20:30)
[2022-12-31] MEDS: Omeprazole 20 MG CAPSULE.DR PO (08:01)
[2022-12-31] MEDS: Gabapentin 300 MG CAPSULE PO ×3 (08:01→20:30)
[2022-12-31] MEDS: Folic Acid 1 MG TABLET PO (08:01)
[2022-12-31] MEDS: Thiamine HCL 100 MG TABLET PO (08:02)
[2022-12-31] MEDS: ondansetron HCL 4 MG/2 ML VIAL IVPUSH (08:02)
[2022-12-31 09:12] VITALS: BP 135/82; PULSE 92; RESP 13; TEMP 37.2; O2SAT 99
[2022-12-31] MEDS: cloNIDine HCL 0.1 MG TABLET PO ×2 (09:13→23:32)
[2022-12-31] MEDS: methADONE HCl 20 MG/2 ML ORAL.CONC PO (09:13)
[2022-12-31] MEDS: Loperamide HCl 2 MG CAPSULE 4 MG PO ×2 (09:20→14:12)
[2022-12-31] MEDS: TiZANidine HCL 4 MG TABLET PO ×3 (09:20→23:47)
--- NOTE | 2022-12-31 09:48 | MHC.CM.PN ---
Pt admitted with ETOH intoxication/high risk for ETOH withdrawal, and pt having seizures. This CM met with pts mother who was at bedside, as pt experiencing seizures and AMS. Pt lives with a friend, and is independent/self-care, no previous services. D/C plan to return home self-care vs detox/rehab. Pts mother to transport if home. Anticipate CARE team involvement. Of note, pt was at [facility] yesterday for ETOH withdrawal and seizures but left AMA. PCP:Rubi Tay
[2022-12-31 11:07] VITALS: BP 136/78; PULSE 100; RESP 20; TEMP 36.3; O2SAT 97
--- NOTE | 2022-12-31 11:11 | HO.ADDICTCON ---
History of Present Illness Date of Service: 12/31/2022 Chief Complaint: alcohol intoxication/ high risk for withdrawal Reason for Consult: SUDHAKAR, opioid withdrawal Discussed with referring provider: Yes Sources of Information: chart reviewed (RN) HPI Narrative: Patient is a 27 year old with reported history of alcohol and opioid use disorder. Currently medically admitted with alcohol withdrawal. History obtained from chart review and patient's RN, Jemima as patient sleeping and challenging to wake when seen by this tech writer. Upon admission to ED patient awake and alert, but disoriented. Mother reporting history of alcohol withdrawal seizures, also reporting that patient was seen at another [facility] hospital yesterday and left against medical advice. This morning patient awake, alert and oriented when meeting with RN. Reported to RN previously being engaged in treatment at [facility], then most recently at [facility]. Unclear when last dose was. He reported to RN using approx 3 bundles heroin/fentanyl daily along with cocaine and a litre of vodka. Per RN, he appeared restless, diaphoretic, c/o joint pain and body aches and several incidents of loose stool. Review of Systems Review of Systems Yes Unobtainable due to mental status (asleep ) Diagnostics Vital Signs (24Hr): Vital Signs - 24 hr 12/30/22 12:02 12/30/22 14:28 12/30/22 16:37 Temperature 98.2 F Pulse Rate 110 H 115 H 124 H Respiratory Rate 26 H 20 22 H Blood Pressure 134/90 H 122/86 122/84 Pulse Oximetry 97 98 Oxygen Delivery Method Room Air Room Air 12/30/22 18:45 12/30/22 19:12 12/30/22 22:00 Temperature 98.3 F 99.4 F Pulse Rate 109 H 124 H 98 Respiratory Rate 13 22 H 18 Blood Pressure 127/80 128/78 120/70 Pulse Oximetry 96 96 98 Oxygen Delivery Method Room Air Room Air Room Air 12/30/22 23:42 12/31/22 04:00 12/31/22 07:15 Temperature 97.9 F 97.9 F 98.5 F Pulse Rate 98 98 100 Respiratory Rate 18 18 18 Blood Pressure 135/77 135/77 135/81 Pulse Oximetry 96 96 97 Oxygen Delivery Method Room Air Room Air Room Air 12/31/22 09:12 Temperature 99 F Pulse Rate 92 Respiratory Rate 13 Blood Pressure 135/82 Pulse Oximetry 99 Oxygen Delivery Method Room Air BMI result Body Mass Index 20.8 Labs 12/30/22 15:37 12/31/22 06:40 Labs: Laboratory Results - last 48 hr 12/30/22 12/30/22 12/30/22 09:31 09:31 09:31 WBC 7.1 RBC 5.42 Hgb 15.5 Hct 43.5 MCV 80.3 MCH 28.6 MCHC 35.6 RDW 12.8 Plt Count 275 MPV 8.8 L Immature Gran % (Auto) 0.1 Neut % (Auto) 51.8 Lymph % (Auto) 44.0 H [place] % (Auto) 3.7 Eos % (Auto) 0.1 Baso % (Auto) 0.3 Lymph # (Auto) 3.1 [place] # (Auto) 0.3 Eos # (Auto) 0.0 Baso # (Auto) 0.0 Abs Immat Gran (auto) 0.01 Absolute Neuts (auto) 3.7 Absolute Nucleated RBC 0.000 Nucleated RBC % (auto) 0.0 Sodium 144 Potassium 3.7 Chloride 110 H Carbon Dioxide 20 L Anion Gap 18 BUN 7 L Creatinine 0.74 Estim Creat Clear Calc 145.0 Estimated GFR > 60 Random Glucose 117 H Calcium 9.4 Magnesium 2.3 Total Bilirubin 0.4 AST 38 H ALT 28 Alkaline Phosphatase 79 Total Creatine Kinase 100 Total Protein 8.6 H Albumin 4.7 TSH Urine Color Urine Appearance Urine pH Ur Specific [place] Urine Protein Urine Glucose (UA) Urine Ketones Urine Blood Urine Nitrite Ur Leukocyte Esterase Salicylates < 5.0 L Urine Opiates Screen Urine Fentanyl Screen Acetaminophen < 17 Ur Barbiturates Screen Ur Phencyclidine Scrn Ur Amphetamines Screen U Benzodiazepines Scrn Urine Cocaine Screen U Marijuana (THC) Screen Ethyl Alcohol 320 H* COVID-19 (ENRIQUE) COVID-19 Clin Com 12/30/22 12/30/22 12/30/22 09:33 15:37 15:37 WBC 6.0 RBC 5.08 Hgb 14.4 Hct 42.2 MCV 83.1 MCH 28.3 MCHC 34.1 RDW 12.7 Plt Count 222 MPV 8.9 L Immature Gran % (Auto) 0.3 Neut % (Auto) 66.7 Lymph % (Auto) 27.0 [place] % (Auto) 5.7 Eos % (Auto) 0.0 Baso % (Auto) 0.3 Lymph # (Auto) 1.6 [place] # (Auto) 0.3 Eos # (Auto) 0.0 Baso # (Auto) 0.0 Abs Immat Gran (auto) 0.02 Absolute Neuts (auto) 4.0 Absolute Nucleated RBC 0.000 Nucleated RBC % (auto) 0.0 Sodium 145 Potassium 3.3 Chloride 111 H Carbon Dioxide 22 Anion Gap 15 BUN 7 L Creatinine 0.73 Estim Creat Clear Calc 147.0 Estimated GFR > 60 Random Glucose 145 H Calcium 9.0 Magnesium Total Bilirubin 0.3 AST 41 H ALT 26 Alkaline Phosphatase 68 Total Creatine Kinase Total Protein 7.5 Albumin 4.1 TSH 0.03 L Urine Color Urine Appearance Urine pH Ur Specific [place] Urine Protein Urine Glucose (UA) Urine Ketones Urine Blood Urine Nitrite Ur Leukocyte Esterase Salicylates Urine Opiates Screen Urine Fentanyl Screen Acetaminophen Ur Barbiturates Screen Ur Phencyclidine Scrn Ur Amphetamines Screen U Benzodiazepines Scrn Urine Cocaine Screen U Marijuana (THC) Screen Ethyl Alcohol 183 COVID-19 (ENRIQUE) Negative COVID-19 Clin Com See Note 12/30/22 12/30/22 12/31/22 16:09 16:09 06:40 WBC RBC Hgb Hct MCV MCH MCHC RDW Plt Count MPV Immature Gran % (Auto) Neut % (Auto) Lymph % (Auto) [place] % (Auto) Eos % (Auto) Baso % (Auto) Lymph # (Auto) [place] # (Auto) Eos # (Auto) Baso # (Auto) Abs Immat Gran (auto) Absolute Neuts (auto) Absolute Nucleated RBC Nucleated RBC % (auto) Sodium 135 Potassium 3.0 L Chloride 101 Carbon Dioxide 22 Anion Gap 15 BUN 9 Creatinine 0.77 Estim Creat Clear Calc 126.3 Estimated GFR > 60 Random Glucose 101 Calcium 9.6 D Magnesium Total Bilirubin AST ALT Alkaline Phosphatase Total Creatine Kinase Total Protein Albumin TSH Urine Color Yellow Urine Appearance Clear Urine pH 6.0 Ur Specific [place] 1.015 Urine Protein Negative Urine Glucose (UA) Negative Urine Ketones 15 Urine Blood Negative Urine Nitrite Negative Ur Leukocyte Esterase Negative Salicylates Urine Opiates Screen Not Detected Urine Fentanyl Screen POSITIVE H Acetaminophen Ur Barbiturates Screen POSITIVE H Ur Phencyclidine Scrn Not Detected Ur Amphetamines Screen Not Detected U Benzodiazepines Scrn POSITIVE H Urine Cocaine Screen POSITIVE H U Marijuana (THC) Screen Not Detected Ethyl Alcohol COVID-19 (ENRIQUE) COVID-19 Clin Com Imaging Radiology Impressions: ITS Impressions Head CT 12/30/22 11:38 IMPRESSION: No acute intracranial pathology. Mental Status Exam Mental Status Exam Narrative: patient asleep, laying bed, blankets pulled up Medications Medications Current Medications Acetaminophen (Acetaminophen 325 Mg Tablet) 650 mg PO Q6H PRN PRN Reason: Pain, Mild (Pain Scale 1-3) Last Admin: 12/31/22 08:01 Dose: 650 mg Clonidine HCl (Clonidine Hcl 0.1 Mg Tablet) 0.1 mg PO TID PRN; Protocol PRN Reason: anxiety/restlessness Last Admin: 12/31/22 09:13 Dose: 0.1 mg Clonidine HCl (Clonidine Hcl 0.1 Mg Tablet) 0.1 mg PO TID PRN; Protocol PRN Reason: restlessness Folic Acid (Folic Acid 1 Mg Tablet) 1 mg PO DAILY [facility] Last Admin: 12/31/22 08:01 Dose: 1 mg Gabapentin (Gabapentin 300 Mg Capsule) 300 mg PO TID [facility] Last Admin: 12/31/22 08:01 Dose: 300 mg Hydroxyzine HCl (Hydroxyzine Hcl 25 Mg Tablet) 25 mg PO Q6H PRN PRN Reason: Anxiety Last Admin: 12/31/22 08:01 Dose: 25 mg Loperamide HCl (Loperamide Hcl 2 Mg Capsule) 4 mg PO Q6H PRN PRN Reason: Diarrhea Last Admin: 12/31/22 09:20 Dose: 4 mg Methadone HCl (Methadone Hcl 20 Mg/2 Ml Oral.Conc) 10 mg PO DAILY PRN PRN Reason: Opiate Withdrawal Omeprazole (Omeprazole 20 Mg Capsule.Dr) 20 mg PO DAILY@0600 [facility] Last Admin: 12/31/22 08:01 Dose: 20 mg Ondansetron HCl (Ondansetron Hcl 4 Mg/2 Ml Vial) 4 mg IVPUSH Q8H PRN PRN Reason: Nausea and Vomiting Last Admin: 12/31/22 08:02 Dose: 4 mg Pharmacy Consult (Consult Rx Etoh Phenob Im/Po) 1 each MISCELLANE ONCE PRN; Protocol PRN Reason: Consult order Pharmacy Consult (Consult Rx Perform Med Rec) 1 each MISCELLANE ONCE PRN PRN Reason: Consult order Pharmacy Consult (Consult Rx Perform Med Rec) 1 each MISCELLANE ONCE PRN PRN Reason: Consult order Phenobarbital (Phenobarbital 15 Mg Tablet) 45 mg PO BID [facility] Stop: 01/01/23 09:01 Last Admin: 12/31/22 08:01 Dose: 45 mg Phenobarbital (Phenobarbital 15 Mg Tablet) 15 mg PO BID [facility]; Protocol Stop: 01/03/23 09:01 Phenobarbital (Phenobarbital 15 Mg Tablet) 15 mg PO DAILY [facility] Stop: 01/05/23 09:01 Sodium Chloride (0.9 % Sodium Chloride Flush 3 Ml Syringe) 3 ml IVFLUSH QSHIFT [facility] Last Admin: 12/31/22 08:02 Dose: 3 ml Thiamine HCl (Thiamine Hcl 100 Mg Tablet) 100 mg PO DAILY [facility] Last Admin: 12/31/22 08:02 Dose: 100 mg Tizanidine HCl (Tizanidine Hcl 4 Mg Tablet) 4 mg PO TID PRN PRN Reason: Restlessness Last Admin: 12/31/22 09:20 Dose: 4 mg Allergies Allergies Allergy/AdvReac Type Severity Reaction Status Date / Time No Known Allergies Allergy Unverified 01/30/20 19:30 [No Known Allergies*] Assessment & Plan Assessment & Plan (1) Opioid withdrawal: Status: Acute Code(s): F11.93 - Opioid use, unspecified with withdrawal Assessment and Plan: methadone 20mg given with good effect earlier this morning additional 10mg PRN ordered should patient need it comfort medications ordered today patient can have one more dose of 10mg methadone should he need it --max total of 40mg dose day one will order 40mg for tomorrow morning and adjust as needed Total time managing care of this patient today _35___ minutes. COUNT INCLUDES THE [facility] Social History Social History Household Members: Unknown / Unable to assess Housing: Unknown / Unable to assess Do you presently have visiting nurse or other home services: No Alcohol intake: current Patient Tobacco Use Status: Tobacco use Unknown Use of substances other than those prescribed or required for medical reasons: Yes Substance Use Type: Crack/Cocaine and Heroin Substance Use Frequency: Daily Last Used Substance: Unknown Currently Displaying Signs/Symptoms of Drug Intoxication Withdrawal: Yes Any prior treatment program specific to substance use: Yes Have you been hit, kicked, punched, or otherwise hurt by someone within the past year? If so, by whom?: No Do you feel safe in your current relationship?: Yes Is there a partner from a previous relationship who is making you feel unsafe now?: No Are you made to feel afraid or neglected: No Advance Directives: No Advance Directives Information Provided: No (Declined) Do you have thoughts of harming others: None Do you have a plan to hurt others: No Plan Recently lost weight without trying: Unsure How much weight loss: Unsure Eating poorly because of decreased appetite: No Nutrition screen score: 4 Nutrition Risks: No Nutritional Risk Poor oral hygiene: No service: No
--- NOTE | 2022-12-31 11:21 | P.PNIM_ITS ---
Subjective Subjective Date of Service: 12/31/22 Interval History: Complaining of withdrawal symptoms was generalized achiness, diarrhea, headache and restlessness, mother at bedside, denies nausea vomiting, tolerated breakfast, no fevers, no chills. Review of Systems All other system reviewed and negative Physical Exam Vital Signs: Vital Signs: Last Vital Signs Temp 97.3 F 12/31/22 11:07 Pulse 100 12/31/22 11:07 Resp 20 12/31/22 11:07 BP 136/78 12/31/22 11:07 Pulse Ox 97 12/31/22 11:07 O2 Del Method Room Air 12/31/22 11:07 BMI result Body Mass Index 20.8 Const: Other: General awake, alert, anxious, restless.? Neck supple no JVD. CVS? regular rate rhythm, Respiratory lungs clear to auscultation, no respiratory distress, no wheeze, no rhonchi. Gastrointestinal abdomen soft, non tender, bowel sounds audible, no guarding , no rigidity. Extremities no? edema. Neuro? moving all 4 extremity, speech clear. Skin multiple needle hamm Musculoskeletal no deformity normal knee/ankle examination Objective Data Active Medications Acetaminophen (Acetaminophen 325 Mg Tablet) 650 mg PO Q6H PRN PRN Reason: Pain, Mild (Pain Scale 1-3) Last Admin: 12/31/22 08:01 Dose: 650 mg Documented By: CRISTAL Clonidine HCl (Clonidine Hcl 0.1 Mg Tablet) 0.1 mg PO TID PRN; Protocol PRN Reason: restlessness Clonidine HCl (Clonidine Hcl 0.1 Mg Tablet) 0.1 mg PO Q6H PRN; Protocol PRN Reason: anxiety/restlessness Folic Acid (Folic Acid 1 Mg Tablet) 1 mg PO DAILY [facility] Last Admin: 12/31/22 08:01 Dose: 1 mg Documented By: CRISTAL Gabapentin (Gabapentin 300 Mg Capsule) 300 mg PO TID [facility] Last Admin: 12/31/22 08:01 Dose: 300 mg Documented By: CRISTAL Hydroxyzine HCl (Hydroxyzine Hcl 50 Mg Tablet) 50 mg PO Q6H PRN PRN Reason: Anxiety Loperamide HCl (Loperamide Hcl 2 Mg Capsule) 4 mg PO Q6H PRN PRN Reason: Diarrhea Last Admin: 12/31/22 09:20 Dose: 4 mg Documented By: CRISTAL Methadone HCl (Methadone Hcl 20 Mg/2 Ml Oral.Conc) 10 mg PO DAILY PRN PRN Reason: Opiate Withdrawal Omeprazole (Omeprazole 20 Mg Capsule.Dr) 20 mg PO DAILY@0600 [facility] Last Admin: 12/31/22 08:01 Dose: 20 mg Documented By: CRISTAL Ondansetron HCl (Ondansetron Hcl 4 Mg/2 Ml Vial) 4 mg IVPUSH Q8H PRN PRN Reason: Nausea and Vomiting Last Admin: 12/31/22 08:02 Dose: 4 mg Documented By: CRISTAL Pharmacy Consult (Consult Rx Etoh Phenob Im/Po) 1 each MISCELLANE ONCE PRN; Protocol PRN Reason: Consult order Pharmacy Consult (Consult Rx Perform Med Rec) 1 each MISCELLANE ONCE PRN PRN Reason: Consult order Pharmacy Consult (Consult Rx Perform Med Rec) 1 each MISCELLANE ONCE PRN PRN Reason: Consult order Phenobarbital (Phenobarbital 15 Mg Tablet) 45 mg PO BID [facility] Stop: 01/01/23 09:01 Last Admin: 12/31/22 08:01 Dose: 45 mg Documented By: CRISTAL Phenobarbital (Phenobarbital 15 Mg Tablet) 15 mg PO BID [facility]; Protocol Stop: 01/03/23 09:01 Phenobarbital (Phenobarbital 15 Mg Tablet) 15 mg PO DAILY [facility] Stop: 01/05/23 09:01 Sodium Chloride (0.9 % Sodium Chloride Flush 3 Ml Syringe) 3 ml IVFLUSH [facility] Last Admin: 12/31/22 08:02 Dose: 3 ml Documented By: CRISTAL Thiamine HCl (Thiamine Hcl 100 Mg Tablet) 100 mg PO DAILY [facility] Last Admin: 12/31/22 08:02 Dose: 100 mg Documented By: CRISTAL Tizanidine HCl (Tizanidine Hcl 4 Mg Tablet) 4 mg PO TID PRN PRN Reason: Restlessness Last Admin: 12/31/22 09:20 Dose: 4 mg Documented By: CRISTAL Labs 12/30/22 15:37 12/31/22 06:40 Labs: Laboratory Results - last 24 hr 12/30/22 12/30/22 12/30/22 15:37 15:37 16:09 MCV 83.1 MCH 28.3 MCHC 34.1 RDW 12.7 Plt Count 222 MPV 8.9 L Immature Gran % (Auto) 0.3 Neut % (Auto) 66.7 Lymph % (Auto) 27.0 [place] % (Auto) 5.7 Eos % (Auto) 0.0 Baso % (Auto) 0.3 Lymph # (Auto) 1.6 [place] # (Auto) 0.3 Eos # (Auto) 0.0 Baso # (Auto) 0.0 Abs Immat Gran (auto) 0.02 Absolute Neuts (auto) 4.0 Absolute Nucleated RBC 0.000 Nucleated RBC % (auto) 0.0 Anion Gap 15 Estim Creat Clear Calc 147.0 Estimated GFR > 60 Random Glucose 145 H Calcium 9.0 Total Bilirubin 0.3 AST 41 H ALT 26 Alkaline Phosphatase 68 Total Protein 7.5 Albumin 4.1 TSH 0.03 L Urine Color Yellow Urine Appearance Clear Urine pH 6.0 Ur Specific [place] 1.015 Urine Protein Negative Urine Glucose (UA) Negative Urine Ketones 15 Urine Blood Negative Urine Nitrite Negative Ur Leukocyte Esterase Negative Urine Opiates Screen Urine Fentanyl Screen Ur Barbiturates Screen Ur Phencyclidine Scrn Ur Amphetamines Screen U Benzodiazepines Scrn Urine Cocaine Screen U Marijuana (THC) Screen Ethyl Alcohol 183 12/30/22 12/31/22 16:09 06:40 MCV MCH MCHC RDW Plt Count MPV Immature Gran % (Auto) Neut % (Auto) Lymph % (Auto) [place] % (Auto) Eos % (Auto) Baso % (Auto) Lymph # (Auto) [place] # (Auto) Eos # (Auto) Baso # (Auto) Abs Immat Gran (auto) Absolute Neuts (auto) Absolute Nucleated RBC Nucleated RBC % (auto) Anion Gap 15 Estim Creat Clear Calc 126.3 Estimated GFR > 60 Random Glucose 101 Calcium 9.6 D Total Bilirubin AST ALT Alkaline Phosphatase Total Protein Albumin TSH Urine Color Urine Appearance Urine pH Ur Specific [place] Urine Protein Urine Glucose (UA) Urine Ketones Urine Blood Urine Nitrite Ur Leukocyte Esterase Urine Opiates Screen Not Detected Urine Fentanyl Screen POSITIVE H Ur Barbiturates Screen POSITIVE H Ur Phencyclidine Scrn Not Detected Ur Amphetamines Screen Not Detected U Benzodiazepines Scrn POSITIVE H Urine Cocaine Screen POSITIVE H U Marijuana (THC) Screen Not Detected Ethyl Alcohol Assessment and Plan (1) Opioid withdrawal: Status: Acute (2) Alcohol withdrawal syndrome: Status: Acute (3) Polysubstance abuse: Status: Acute Plan 27-year-old male with history of hepatitis-C, IV drug use, history of opioid use on methadone, alcohol use disorder with prior history of alcohol withdrawal seizures presented to [facility] due to altered mental status and noted to have alcohol intoxication, urine Toxicology positive for cocaine, fentanyl, benzodiazepine and barbiturate, patient will be admitted to hospital for alcohol intoxication and high risk for alcohol withdrawal. Alcohol abuse and high risk for withdrawal. Restless, anxious, continue phenobarb protocol, thiamine, folic acid Continue Prilosec for GI prophylaxis, as needed hydroxyzine Sinus tach likely due to withdrawal.? Seizure precautions Polysubstance abuse actively use IV cocaine, IV heroin, and fentanyl, Noted to have withdrawal symptoms with restlessness, anxiety, diarrhea Added clonidine, and Zanaflex, and increase dose of hydroxyzine Seen by Steph Blevins from Addiction Team placed on methadone Continue close monitoring . Hypokalemia will replete and follow labs Generalized pain likely due to withdrawal continue gabapentin home does,and Tylenol Hepatitis-C need outpatient workup and treatment . DVT prophylaxis low risk will encourage early ambulation once clinically stable In my clinical judgment patient need continued inpatient stay due to alcohol intoxication with high risk for etoh? withdrawal with prior history of alcohol withdrawal seizure and also need treatment for polysubstance withdrawal symptoms. Time Spent With Patient Time: Total time managing care of this patient today ____ minutes. Quality Stroke Does the patient have a stroke diagnosis?: No VTE Prior VTE?: No VTE Risk Level:: Medical - low VTE Device Contraindication: Treatment Not Indicated VTE Drug Contraindication: Treatment Not Indicated
[2022-12-31] MEDS: methADONE HCl 20 MG/2 ML ORAL.CONC 10 MG PO (11:51)
[2022-12-31 14:05] VITALS: BP 104/70; PULSE 84; RESP 16; TEMP 36.4; O2SAT 99
[2022-12-31] MEDS: Potassium Chloride ER 20 MEQ TAB.ER.PRT 40 MEQ PO (14:11)
[2022-12-31] MEDS: hydrOXYzine HCL 50 MG TABLET PO (14:12)
[2022-12-31 18:28] VITALS: BP 106/61; PULSE 88; RESP 20; TEMP 36.3; O2SAT 98
[2023-01-01] VITALS: BP 122/68; PULSE 96; RESP 17; TEMP 36.1; O2SAT 96
[2023-01-01] MEDS: hydrOXYzine HCL 50 MG TABLET PO (02:44)
--- NOTE | 2023-01-01 02:59 | PM.EVENT ---
Event Note Date of Service: 01/01/23 Event Note: Patient had a witnessed 10 second seizure as per nursing report which broke on its own. Currently vitals stable and patient is postictal. Will administer IV Ativan. Continue seizure precautions. Likely due to alcohol withdrawal. Does have a history of DTs Time Spent With Patient Time: Total time managing care of this patient today ____ minutes.
[2023-01-01] MEDS: LORazepam 2 MG/ML VIAL IVPUSH (03:14)
[2023-01-01 03:45] VITALS: RESP 16
[2023-01-01 03:57] VITALS: BP 129/60; PULSE 85; RESP 16; TEMP 36.8; O2SAT 99
--- NOTE | 2023-01-01 05:25 | PC.NURSE ---
Patient had witnessed seizure by this RN and TENTER, approximately 10 seconds. Patient immediately after seizure alert and asked, where am I? . Patient oriented postically except for year in which he stated it was 2021. notified via [email or web address]. IV ativan administered as ordered.
[2023-01-01 06:41] LABS: Anion Gap 16 (12-20); Blood Urea Nitrogen 7 mg/dL (9-16); Calcium 9.3 mg/dL (8.4-10.2); Carbon Dioxide 21 mmol/L (22-29); Chloride 103 mmol/L (96-108); Creatinine Clr Calc Pharmacy 111.8; Estimated Glomerular Filt Rate > 60; Glucose Random 212 mg/dL (60-115); Magnesium 1.9 mg/dL (1.6-2.6); Potassium 3.1 mmol/L (3.3-5.1); Sodium 137 mmol/L (135-145)
[2023-01-01] MEDS: TiZANidine HCL 4 MG TABLET PO (07:01)
[2023-01-01] MEDS: Omeprazole 20 MG CAPSULE.DR PO (07:01)
[2023-01-01 07:44] VITALS: BP 116/72; PULSE 95; RESP 18; TEMP 36.1; O2SAT 99
[2023-01-01] MEDS: Loperamide HCl 2 MG CAPSULE 4 MG PO (07:54)
[2023-01-01] MEDS: methADONE HCl 20 MG/2 ML ORAL.CONC 40 MG PO (07:54)
[2023-01-01] MEDS: PHENobarbitaL 15 MG TABLET 45 MG PO (07:55)
[2023-01-01] MEDS: cloNIDine HCL 0.1 MG TABLET PO (07:55)
[2023-01-01] MEDS: Acetaminophen 325 MG TABLET 650 MG PO (07:55)
[2023-01-01] MEDS: Thiamine HCL 100 MG TABLET PO (07:55)
[2023-01-01] MEDS: Gabapentin 300 MG CAPSULE PO (07:55)
[2023-01-01] MEDS: ondansetron HCL 4 MG/2 ML VIAL IVPUSH (07:55)
[2023-01-01] MEDS: Folic Acid 1 MG TABLET PO (07:55)
[2023-01-01] MEDS: 0.9 % Sodium Chloride Flush 3 ML SYRINGE IVFLUSH (07:58)
[2023-01-01] MEDS: Potassium Chloride ER 20 MEQ TAB.ER.PRT 40 MEQ PO (08:11)
--- NOTE | 2023-01-01 08:30 | PC.NURSE ---
At this time patient ec
--- NOTE | 2023-01-01 08:31 | PC.NURSE ---
Addendum entered by Jemima Moore RN 01/01/23 08:36: Risks discussed including seizure, coma, and . Original Note: Patient expresses he would like to leave AMA at this time. / Umang at bedside, had a lengthy conversation with patient about risks and benefits of leaving AMA. Patient a/ox4, walking independently with steady gait and understands what leaving AMA entails. AMA form signed. Patient's emergency contact notified. Patient aware to not drive after sedative medications given. Patient states he will not be driving and has arranged a ride with a friend home.
[2023-01-01 08:46] LABS: Free T4 (Free Thyroxine) 0.73 ng/dL (0.71-1.85)
--- NOTE | 2023-01-01 08:47 | PC.NURSE ---
Friend Elmer at bedside attempting to have a conversation with patient and convince him to stay at this time.
[2023-01-01 09:17] VITALS: BP 125/100; PULSE 98; RESP 16; TEMP 36.5; O2SAT 99
--- NOTE | 2023-01-01 10:07 | P.DS_ITS ---
DS: Providers Provider Date of Service: 01/01/23 Date of admission: 12/30/22 17:09 Primary care physician: Rubi Tay MD Consults: 12/30/22 15:25 Consult to Care Team Stat Comment: Reason for consultation: polysub, si, depression 12/30/22 17:19 Addiction Medicine Routine Consulting Provider: Addiction Covering Reason for consultation: etoh/polysubstance use Has provider been notified: No DS: Diagnosis Discharge Diagnosis (1) Opioid withdrawal: Status: Acute (2) Alcohol withdrawal syndrome: Status: Acute (3) Polysubstance abuse: Status: Acute DS: Summary Hospital Course Hospital Course: Date of Service: 12/30/22 Chief Complaint: Altered mental status 27-year-old gentleman with past medical history of hepatitis-C, IV drug use, who presents by EMS for altered mental status, patient was recently evaluated at [facility] yesterday for alcohol withdrawal seizure patient left ED, against medical advise, patient lives at home with a roommate, after returning back home patient had few more drinks this a.m. but did not use IV drugs, he was noted to be somnolent, confused therefore mother requested roommate to transfer him to [place] ED, patient takes methadone at home that he has not received in last few days , on arrival to ED patient was confused, unable to provide meaningful history, he was noted to be tachycardic, tachypneic completed pressure was high normal, he was treated in ED with IM Haldol, Ativan as well as phenobarb his drug toxicology was positive for fentanyl, cocaine, barbiturate, benzodiazepine his alcohol level was 320, CT head showed no acute abnormality LFTs and renal function are unremarkable, is stable hematocrit, platelets 275, salicylate level, Tylenol level within normal range, COVID-19 negative magnesium 2.3, EKG showed sinus tachycardia, patient later became more awake, alert is aware that he is at [facility], admits to drinking 1.5 L of vodka daily, uses IV cocaine on a regular basis, mostly inject in neck, quit smoking and now vaping, he is unemployed. 27-year-old male with history of hepatitis-C, IV drug use, history of opioid use on methadone, alcohol use disorder with prior history of alcohol withdrawal seizures presented to [facility] due to altered mental status and noted to have alcohol intoxication, urine Toxicology positive for cocaine, fentanyl, benzodiazepine and barbiturate, patient will be admitted to hospital for alcohol intoxication and high risk for alcohol withdrawal. patient admitted to medical floor with a diagnosis of alcohol intoxication with highrisk for withdrawal, patient was treated with phenobarb protocol, thiamine, folic acid and was placed on as needed hydroxyzine for anxiety, patient noted to have a brief seizure last night , responded to Ativan with brief postictal period. This morning patient is awake alert, is adamant to leave hospital, he was informed about high risk of recurrent withdrawal seizures, patient showed understanding about withdrawal symptoms and seizures but still signed paper to leave against medical advice, of note patient left against medical advise from [facility] day prior to admission, patient also with history of polysubstance abuse actively using IV cocaine, IV heroin, and fentanyl, noted to have a withdrawal symptoms with restlessness, anxiety, diarrhea was seen by Addiction Team and was placed on clonidine, Zanaflex and methadone symptoms of restlessness and withdrawal significantly improved prior to discharge. recommend patient not to drive car,operate machinery or take tub baths. Hypokalemia Repleted patient left against medical advice prior to recheck Generalized pain likely due to withdrawal recommend to continue gabapentin home does,and? Tylenol. Hepatitis-C need outpatient workup and treatment . Time Spent with Patient Time attestation: Total time managing care of this patient today ____ minutes. Discharge coordination time: Greater than 30 minutes Quality: Safe Use of Opioids Does Pt have an Active Cancer Diagnosis on the Problem List?: No Quality: Stroke Does the patient have a stroke diagnosis?: No Physical Exam Vital Signs: Vital Signs: Last Vital Signs Temp 97.7 F 01/01/23 09:17 Pulse 98 01/01/23 09:17 Resp 16 01/01/23 09:17 BP 125/100 H 01/01/23 09:17 Pulse Ox 99 01/01/23 09:17 O2 Del Method Room Air 01/01/23 09:17 BMI result Body Mass Index 20.8 Const: Other: General awake, alert x3 no acute distress Neck supple no JVD. CVS? regular rate rhythm, Respiratory lungs clear to auscultation, no respiratory distress, no wheeze, no rhonchi. Gastrointestinal abdomen soft, non tender, bowel sounds audible,? no guarding , no rigidity. Extremities no? edema. Neuro? moving all 4 extremity, speech clear. Skin multiple needle hamm psych appropriate affect DS: Data Data Completed and Pending Labs on day of discharge: Laboratory Results - last 24 hr 01/01/23 06:13 Sodium 137 Potassium 3.1 L Chloride 103 Carbon Dioxide 21 L Anion Gap 16 BUN 7 L Creatinine 0.87 Estim Creat Clear Calc 111.8 Estimated GFR > 60 Random Glucose 212 H Calcium 9.3 Magnesium 1.9 Free T4 0.73 Discharge Plan Discharge Anticipated Discharge Date/Time: 01/01/23 10:03 Patient Disposition: Left Against Medical Advice Discharge Diagnosis: alcohol intoxication and withdrawal polysubstance abuse Referrals: Rubi Tay MD [Primary Care Provider] - 1 Week Discharge Medications: Continued gabapentin 300 mg capsule 300 mg PO TID omeprazole 20 mg capsule,delayed release(DR/EC) 20 mg PO DAILY Discharge Orders: Discharge Order (Routine); Ordered 01/01/23 Ordered By: Benjamin Heck Care Plan Goals: strongly recommend to abstain from alcohol and illicit drug use recommend to avoid driving and operating machinery Health Concerns: illicit drug use/ alcohol abuse Plan of Treatment: outpatient follow-up with primary care physician call for appointment, follow- up at methadone clinic to continue use of methadone Assessment: as above Discharge Date/Time: 01/01/23 09:20
[2023-01-01 12:51] LABS: Fentanyl, urine SEE COMMENTS (Not Detect)
--- NOTE | 2023-01-01 14:09 | MHC.CM.PN ---
Pt left AMA.
== END 2023-01-01 09:20 | disposition left against medical advice (07) | DRG 770 ==
LOC: HO.ED 16:57 → HO.EDOVER 17:27 → HO.IMC 19:49
PROVIDERS: Physician Assistant; Admitting Provider Hospitalist; Emergency Provider Emergency Medicine Emergency Medical Services; PCP Internal Medicine; Visit Provider Hospitalist
DX: F10.139 Alcohol abuse with withdrawal, unspecified (principal); R56.9 Unspecified convulsions; B19.20 Unspecified viral hepatitis C without hepatic coma; F10.129 Alcohol abuse with intoxication, unspecified; E87.6 Hypokalemia; F11.23 Opioid dependence with withdrawal; F14.10 Cocaine abuse, uncomplicated; Y90.8 Blood alcohol level of 240 mg/100 ml or more; Z20.822 Contact with and (suspected) exposure to COVID-19; Z91.148 Patient's other noncompliance with medication regimen for other reason; Z79.899 Other long term (current) drug therapy
CPT/HCPCS: 36415; 70450; 80048; 80053; 80143; 80179; 80307; 80354; 81003; 82550; 83735; 84439; 84443; 85025; 87635; 92950; 93005; 99285; J2060; J2405; J2560

== ENCOUNTER → 2022-12-30 17:09 | Outpatient (BNV) | payer OTHER, SELFPAY | PROVIDERS: Admitting Provider Hospitalist; Emergency Provider Emergency Medicine Emergency Medical Services; PCP Internal Medicine; Visit Provider Nurse Practitioner Psychiatric/Mental Health | DX: F11.93 Opioid use, unspecified with withdrawal (principal); F10.239 Alcohol dependence with withdrawal, unspecified | CPT/HCPCS: 99222; 99233 ==

== ENCOUNTER → 2022-12-30 17:09 | Outpatient (BNV) | payer OTHER, SELFPAY | PROVIDERS: Admitting Provider Hospitalist; Emergency Provider Emergency Medicine Emergency Medical Services; PCP Internal Medicine; Visit Provider Hospitalist | DX: F11.93 Opioid use, unspecified with withdrawal (principal); F10.939 Alcohol use, unspecified with withdrawal, unspecified; F19.10 Other psychoactive substance abuse, uncomplicated | CPT/HCPCS: 99223; 99233; 99239 ==